=== PATIENT | female | born 1950 | race Caucasian/White ===

== ENCOUNTER 2016-11-26 11:20 | Day surgery (SDC) | payer OTHER ==
[2016-11-26] MEDS ORDERED: Sodium Bicarbonate 8.4% IV* 50 ML VIAL ONE (13:23)
[2016-11-26] MEDS ORDERED: Lidocain 1% EPI 1:100,000 * 30 ML MDV ONE (13:24)
[2016-11-26] MEDS ORDERED: Bupivacaine 0.5% SDV PF* 30 ML VIAL ONE (13:54)
[2016-11-26] MEDS ORDERED: Bupivacaine 0.25% SDV* 30 ML ONE (13:57)
[2016-11-26 14:42] VITALS: BP 100/60
--- NOTE | 2016-11-27 04:18 | OP ---
DATE OF OPERATION: 11/26/16 [facility] DATE OF : 50 SURGEON: Matthias Nguyen MD PATTERN STORAGE CLERK: ADEN Elaine ANESTHESIOLOGIST: None. ANESTHESIA: Local only with 1% lidocaine with epinephrine and bicarbonate. PRE-OP DIAGNOSIS: Right carpal tunnel syndrome. POST-OP DIAGNOSIS: Right carpal tunnel syndrome. PROCEDURE PERFORMED: Right open carpal tunnel release. INDICATIONS: Ms. Fontaine is a 66-year-old female who has had progressive right carpal tunnel syndrome. She tried some nonoperative treatment. Ultimately she started to have the right carpal tunnel release. We talked about risks and benefits. She elected to proceed. ESTIMATED BLOOD LOSS: 5 mL. COMPLICATIONS: None. FINDINGS: As expected. PROCEDURE IN DETAIL: Margot was seen in the preoperative holding area and the correct side, site, and procedure were identified. We had a formal time-out. Then, anesthetized the operative area with 1% lidocaine with epinephrine and bicarbonate. We then came back to the operating room a short time later and the arm was prepped and draped in the usual fashion. Formal time-out was performed. I began by making a 2 to 3 cm longitudinal incision in the standard location for an open carpal tunnel release. Dissection was carried down through the subcutaneous tissue and palmar fascia to expose the transverse carpal ligament. A traversing vessel was cauterized with the bipolar. I then released the transverse carpal ligament just off the radial aspect of the hook of the hamate. The release was carried out from distal to proximal. When I got to the proximal aspect of the incision, I mobilized this subcutaneous tissue and retracted it volarly and ulnarly. Under direct visualization, I then completed the rest of the release of the transverse carpal ligament and distal antebrachial fascia just off the ulnar aspect of the palmaris longus tendon to a level several centimeters proximal to the wrist flexion crease. I then checked to make sure there was absolutely no compression on the nerve. Everything was nicely released. I did release a few more fibers distally. Once I was satisfied that there was absolutely no compression, I irrigated out the wound and the skin was closed with some 4-0 nylon suture. The operative area was infiltrated with some 0.25% plain Marcaine. The wound was then dressed with Xeroform, 4x4, sterile Webril, and an Dakota bandage. She was taken to the recovery room in stable condition. [id number]/[facility] #: [id number] ANIYA
== END 2016-11-26 14:43 | disposition home or self-care (01) ==
LOC: OREAST 11:20
PROVIDERS: ATTEND Orthopaedic Surgery Hand Surgery
DX: G56.01 Carpal tunnel syndrome, right upper limb (principal)